=== PATIENT | male | born 1950 | race Caucasian/White ===

== ENCOUNTER → 2018-09-09 | Day surgery (SDC) | payer MEDICARE ==
[2018-09-08 11:04] LABS: BASOPHILS % 0.7 % (0.0-1.0); EOSINOPHILS # (AUTO) 0.4 (0.0-0.4); EOSINOPHILS % 6.8 % (0.0-6.0); HEMATOCRIT 40.4 % (38.2-49.6); HEMOGLOBIN 14.1 g/dL (14.0-18.0); LYMPHOCYTES % 17.6 % (18.0-39.1); MEAN CORPUSCULAR HEMOGLOBIN 32.6 pg (28-32); MEAN CORPUSCULAR HGB CONC 34.9 g/dL (31-35); MEAN CORPUSCULAR VOLUME 93.5 fL (81-99); MONOCYTES # (AUTO) 0.5 (0.2-0.8); MONOCYTES % 9.4 % (4.4-11.3); NEUTROPHILS # (AUTO) 3.6 (2.1-6.9); NEUTROPHILS % 65.3 % (38.7-80.0); PLATELET COUNT 177 x10e3/uL (140-360); RED BLOOD COUNT 4.32 x10e6/uL (4.3-5.7); RED CELL DISTRIBUTION WIDTH 12.3 % (11.7-14.4)
[~2018-09-09] MED LIST: FENTANYL CITRATE/PF 100MCG/2 ML INJ ONE; LIDOCAINE HCL 2% LOCAL INJ 5 ML SDV VIAL INJ ONE; MIDAZOLAM HCL 2 MG/2 ML VIAL ONE; PROPOFOL IV EMULSION 10 MG/ML 50 ML VIAL ONE
--- OUTSIDE RECORDS SUMMARY | 2018-09-09 05:07 | XMS REPORT | Clinical Summary ---
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 Radiology Fermin Lin MD Tongue cancer Encounter 07/06/2018 [facility] Radiology Fermin Lin MD Tongue cancer Encounter 07/06/2018 Office Visit Oncology Fermin Lin MD Tongue cancer (Primary Dx); Tongue carcinoma 07/06/2018 Lab Lab Fermin Lin MD Tongue cancer 07/06/2018 Ancillary Oncology Fermin Lin MD Tongue cancer Orders 05/24/2018 Orders Only Oncology Krista Currie MA 05/11/2018 Telephone Oncology Fermin Lin MD 12/21/2017 Orders Only Oncology Krista Currie MA Tongue cancer (Primary Dx) 12/10/2017 [facility] Radiology Fermin Lin MD Carcinoma of tongue Encounter 12/10/2017 [facility] Radiology Fermin Lin MD Carcinoma of tongue Encounter 12/10/2017 Office Visit Oncology Fermin Lin MD Carcinoma of tongue (Primary Dx) 12/10/2017 Lab Lab Fermin Lin MD Carcinoma of tongue 12/10/2017 Ancillary Oncology Fermin Lin MD Carcinoma of tongue Orders after 09/08/2017 Social History Tobacco Use Types Packs/Day Years Used Date Unknown If Ever Smoked Sex Assigned at Date Recorded Not on file Last Filed Vital Signs Vital Sign Reading Time Taken Blood Pressure 134/89 07/06/2018 2:59 PM CDT Pulse 57 07/06/2018 2:59 PM CDT Temperature 35.9 C (96.6 F) 12/10/2017 11:10 AM [facility] Respiratory Rate - - Oxygen Saturation - - Inhaled Oxygen - - Concentration Weight 84.4 kg (186 lb) 07/06/2018 2:59 PM CDT Height 177.8 cm (5' 10") 07/06/2018 2:59 PM CDT Body Mass Index 26.69 07/06/2018 2:59 PM CDT Plan of Treatment Date Type Specialty Care Team Description 07/07/2019 Appointment Radiology Fermin Lin MD [address] [address] 07/07/2019 Office Visit Oncology Fermin Lin MD [address] [place] [id number] Health Maintenance Due Date Last Done Comments COLON CANCER SCREENING 2001 SHINGRIX VACCINE (#1) 2001 ZOSTER VACCINE 2011 PNEUMOCOCCAL 2016 POLYSACCHARIDE VACCINE AGE 65 AND OVER PNEUMOCOCCAL-13 2016 INFLUENZA VACCINE 06/23/2018 Procedures Procedure Name Priority Date/Time Associated Diagnosis Comments CT SOFT TISSUE NECK W Routine 07/06/2018 Tongue cancer Results for this CONTRAST 12:30 PM CDT procedure are in the results section. CT CHEST W CONTRAST Routine 07/06/2018 Tongue cancer Results for this ABDOMEN W WO CONTRAST 12:29 PM CDT procedure are in the PELVIS W CONTRAST results section. ESTIMATED GFR Routine 07/06/2018 Results for this 11:31 AM CDT procedure are in the results section. POC CREATININE Routine 07/06/2018 Results for this 11:31 AM CDT procedure are in the results section. ZZESTIMATED GFR Routine 07/06/2018 Results for this 10:54 AM CDT procedure are in the results section. HC COMPLETE BLD COUNT Routine 07/06/2018 Tongue cancer Results for this W/AUTO DIFF 10:54 AM CDT procedure are in the results section. URIC ACID LEVEL Routine 07/06/2018 Tongue cancer Results for this 10:54 AM CDT procedure are in the results section. PHOSPHORUS LEVEL Routine 07/06/2018 Tongue cancer Results for this 10:54 AM CDT procedure are in the results section. LDH Routine 07/06/2018 Tongue cancer Results for this 10:54 AM CDT procedure are in the results section. CARCINOEMBRYONIC ANTIGEN Routine 07/06/2018 Tongue cancer Results for this (CEA) 10:54 AM CDT procedure are in the results section. COMPREHENSIVE METABOLIC Routine 07/06/2018 Tongue cancer Results for this PANEL 10:54 AM CDT procedure are in the results section. GGT Routine 07/06/2018 Tongue cancer Results for this 10:54 AM CDT procedure are in the results section. CT CHEST W CONTRAST Routine 12/10/2017 Carcinoma of tongue Results for this ABDOMEN W WO CONTRAST 10:34 AM [facility] CONS[facility] procedure are in the PELVIS W CONTRAST results section. CT SOFT TISSUE NECK W Routine 12/10/2017 Carcinoma of tongue Results for this CONTRAST 10:33 AM [facility] procedure are in the results section. ZZESTIMATED GFR Routine 12/10/2017 Results for this 9:33 AM [facility] procedure are in the results section. CREATININE LEVEL Routine 12/10/2017 Results for this 9:33 AM [facility]ENTER CON[facility] procedure are in the results section. ZZESTIMATED GFR Routine 12/10/2017 Results for this 9:07 AM [facility] CON[facility] procedure are in the results section. CARCINOEMBRYONIC ANTIGEN Routine 12/10/2017 Carcinoma of tongue Results for this (CEA) 9:07 AM [facility] procedure are in the results section. CBC HEMOGRAM Routine 12/10/2017 Carcinoma of tongue Results for this 9:07 AM [facility] CON[facility] procedure are in the results section. PHOSPHORUS LEVEL Routine 12/10/2017 Carcinoma of tongue Results for this 9:07 AM [facility]ENTER CONS[facility] procedure are in the results section. LDH Routine 12/10/2017 Carcinoma of tongue Results for this 9:07 AM [facility] CENTER CONS[facility] procedure are in the results section. GGT Routine 12/10/2017 Carcinoma of tongue Results for this 9:07 AM [facility]ENTER CON[facility] procedure are in the results section. URIC ACID LEVEL Routine 12/10/2017 Carcinoma of tongue Results for this 9:07 AM [facility] CON[facility] procedure are in the results section. COMPREHENSIVE METABOLIC Routine 12/10/2017 Carcinoma of tongue Results for this PANEL 9:07 AM [facility]ENTER CON[facility] procedure are in the results section. after 09/08/2017 Results * CT Soft Tissue Neck W Contrast (07/06/2018 12:30 PM) Only the most recent of 2 results within the time period is included. Narrative Performed At EXAMINATION: CT SOFT TISSUE NECK W CONTRAST [facility] CLINICAL HISTORY: C02.9 Malignant neoplasm of tongueunspecified, tongue ca COMPARISON:CT neck 12/10/2017. TECHNIQUE: Postcontrast enhanced imaging through the neck was performed from the upper chest through the skull base with coronal and sagittal reconstructed images.CT imaging was performed with iterative reconstruction technique and/or automated exposure control to reduce radiation dose. FINDINGS: There is similar appearing hypoattenuating submucosal edema involving the left oral pharynx and glossotonsillar sulcus, images 97-115 of series 8, likely reflecting posttreatment change. No suspicious masslike enhancement identified to suggest recurrent tumor. No pathologically enlarged cervical, supraclavicular or upper mediastinal lymph nodes identified. The base of tongue appears unremarkable. The laryngeal structures are symmetric and unremarkable. No prevertebral soft tissue swelling identified. There is marked atrophy of the submandibular glands, likely posttreatment related. The parotid glands appear normal bilaterally. The thyroid gland is grossly unremarkable. Normal three-vessel branching of the aortic arch is noted. The carotid and vertebral arteries are patent without gross luminal irregularity. No significant periodontal disease identified. There are healed postoperative changes compatible prior bilateral uncinectomies, maxillary antrostomies and posterior ethmoidectomies. Focal inflammatory mucosal thickening is noted throughout the right frontal sinus and anterior ethmoid air cells. The remaining paranasal sinuses and mastoid air cells are clear. The orbital structures are symmetric and grossly unremarkable. Limited evaluation of the intracranial structures reveals no suspicious abnormality. No midline shift or ventriculomegaly identified. No suspicious osseous lesions are identified. No significant stenosis is seen throughout the cervical spine. The lung apices are clear. IMPRESSION: Stable appearing posttreatment changes most pronounced along the left oropharynx when compared to prior CTs dating back to 06/15/2014. No evidence of recurrent tumor or cervical lymphadenopathy. [id number] Procedure Note Hm Interface, Radiology Results - 07/06/2018 1:12 PM CDT EXAMINATION: CT SOFT TISSUE NECK W CONTRAST CLINICAL HISTORY: C02.9 Malignant neoplasm of tongue unspecified, tongue ca COMPARISON: CT neck 12/10/2017. TECHNIQUE: Postcontrast enhanced imaging through the neck was performed from the upper chest through the skull base with coronal and sagittal reconstructed images. CT imaging was performed with iterative reconstruction technique and/or automated exposure control to reduce radiation dose. FINDINGS: There is similar appearing hypoattenuating submucosal edema involving the left oral pharynx and glossotonsillar sulcus, images 97-115 of series 8, likely reflecting posttreatment change. No suspicious masslike enhancement identified to suggest recurrent tumor. No pathologically enlarged cervical, supraclavicular or upper mediastinal lymph nodes identified. The base of tongue appears unremarkable. The laryngeal structures are symmetric and unremarkable. No prevertebral soft tissue swelling identified. There is marked atrophy of the submandibular glands, likely posttreatment related. The parotid glands appear normal bilaterally. The thyroid gland is grossly unremarkable. Normal three-vessel branching of the aortic arch is noted. The carotid and vertebral arteries are patent without gross luminal irregularity. No significant periodontal disease identified. There are healed postoperative changes compatible prior bilateral uncinectomies, maxillary antrostomies and posterior ethmoidectomies. Focal inflammatory mucosal thickening is noted throughout the right frontal sinus and anterior ethmoid air cells. The remaining paranasal sinuses and mastoid air cells are clear. The orbital structures are symmetric and grossly unremarkable. Limited evaluation of the intracranial structures reveals no suspicious abnormality. No midline shift or ventriculomegaly identified. No suspicious osseous lesions are identified. No significant stenosis is seen throughout the cervical spine. The lung apices are clear. IMPRESSION: Stable appearing posttreatment changes most pronounced along the left oropharynx when compared to prior CTs dating back to 06/15/2014. No evidence of recurrent tumor or cervical lymphadenopathy. [id number] Performing Organization Address City/State/Zipcode Phone Number [facility] [address] [place] [address] * CT Chest W Contrast Abdomen W Wo Contrast Pelvis W Contrast (07/06/2018 12:29 PM) Only the most recent of 2 results within the time period is included. Narrative Performed At EXAMINATION:CT CHEST W CONTRAST ABDOMEN W WO CONTRAST PELVIS W CONTRAST [facility] CLINICAL HISTORY:C02.9 Malignant neoplasm of tongueunspecified, debbi livingston TECHNIQUE:Axial images of the abdomen were obtained prior to intravenous contrast administration. Multiple axial images of the chest, abdomen, and pelvis were obtained following intravenous administration of iodinated contrast. Sagittal and coronal computerized reformatted images were obtained. CT scans are performed using radiation dose reduction techniques. Technical factors are evaluated and adjusted to ensure appropriate moderation of exposure. Automated dose management technology is applied to adjust radiation exposure while achieving a diagnostic quality image. COMPARISON:12/10/2017 IMPRESSION: Chest: 1.There is no mediastinal adenopathy. Trace pericardial effusion. Heart is normal in size. 2.No suspicious pulmonary nodules. Abdomen: 1.Scattered subcentimeter hepatic cysts and subcentimeter left hepatic lobe hemangioma are reidentified. No evidence of metastatic disease in the abdomen. 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 Largest measures approximately 1.7 cm in the uncinate process. 3.Spleen is normal in size. There is no adrenal mass. Stable subcentimeter renal cysts. 4.There is no regional adenopathy. The abdominal aorta is normal in caliber. Pelvis: 1.The urinary bladder is unremarkable. 2.The prostate is normal in size. 3.There is no pelvic mass or lymphadenopathy. 4.No suspicious osseous lesions are seen. [facility]-[id number] Procedure Note [facility], Radiology Results Incoming - 07/06/2018 4:16 PM CDT EXAMINATION: CT CHEST W CONTRAST ABDOMEN W WO CONTRAST PELVIS W CONTRAST CLINICAL HISTORY: C02.9 Malignant neoplasm of tongue unspecified, debbi ca TECHNIQUE: Axial images of the abdomen were obtained prior to intravenous contrast administration. Multiple axial images of the chest, abdomen, and pelvis were obtained following intravenous administration of iodinated contrast. Sagittal and coronal computerized reformatted images were obtained. CT scans are performed using radiation dose reduction techniques. Technical factors are evaluated and adjusted to ensure appropriate moderation of exposure. Automated dose management technology is applied to adjust radiation exposure while achieving a diagnostic quality image. COMPARISON: 12/10/2017 IMPRESSION: Chest: 1. There is no mediastinal adenopathy. Trace pericardial effusion. Heart is normal in size. 2. No suspicious pulmonary nodules. Abdomen: 1. Scattered subcentimeter hepatic cysts and subcentimeter left hepatic lobe hemangioma are reidentified. No evidence of metastatic disease in the abdomen. 2. Multiple stable pancreatic cysts, likely IPMN. Largest measures approximately 1.7 cm in the uncinate process. 3. Spleen is normal in size. There is no adrenal mass. Stable subcentimeter renal cysts. 4. There is no regional adenopathy. The abdominal aorta is normal in caliber. Pelvis: 1. The urinary bladder is unremarkable. 2. The prostate is normal in size. 3. There is no pelvic mass or lymphadenopathy. 4. No suspicious osseous lesions are seen. [facility]-[id number] Performing Organization Address City/[facility]/[place] [address] * Estimated GFR (07/06/2018 11:31 AM) GFR Non Af Amer 75 mL/min/1.73 m2 [facility] DEPARTMENT OF PATHOLOGY AND GENOMIC MEDICINE GFR Af Amer >90 mL/min/1.73 m2 [facility] DEPARTMENT OF Comment: PATHOLOGY AND Chronic kidney disease: <60 GENOMIC MEDICINE mL/min/1.73m2 Kidney failure: <15 mL/min/1.73m2 The estimated GFR is calculated from the IDMS-traceable Modification of Diet in Renal Disease Equation. The accuracy of the calculation is poor when the creatinine is normal. Calculated values >90 mL/min/1.73m2 are not reported. This equation has not been validated in children (<18 years), women, the elderly (>70 years), or ethnic groups other than Caucasians and Americans. Specimen Blood Performing Organization Address [facility] [place] [address] PATHOLOGY AND GENOMIC MEDICINE * POC creatinine (07/06/2018 11:31 AM) POC creatinine 1.0 0.7 - 1.2 mg/dl [facility] DEPARTMENT OF Comment: PATHOLOGY AND Meter ID: [id number] GENOMIC MEDICINE Instructional Technology Facilitator: Abhishek Ortiz Specimen Blood Performing Organization Address [facility]/[place] [address] PATHOLOGY AND GENOMIC MEDICINE * Estimated GFR (07/06/2018 10:54 AM) Only the most recent of 3 results within the time period is included. GFR Non Af Amer 60 mL/min/1.73 m2 [facility] DEPARTMENT OF PATHOLOGY AND GENOMIC MEDICINE GFR Af Amer 73 mL/min/1.73 m2 [facility] DEPARTMENT OF Comment: PATHOLOGY AND Chronic kidney disease: <60 GENOMIC MEDICINE mL/min/1.73m2 Kidney failure: <15 mL/min/1.73m2 The estimated GFR is calculated from the IDMS-traceable Modification of Diet in Renal Disease Equation. The accuracy of the calculation is poor when the creatinine is normal. Calculated values >90 mL/min/1.73m2 are not reported. This equation has not been validated in children (<18 years), women, the elderly (>70 years), or ethnic groups other than Caucasians and Americans. Specimen Plasma specimen Performing Organization Address City/[facility]/Zipcode Phone Number [address] [address] PATHOLOGY AND GENOMIC MEDICINE * CBC with platelet and differential (07/06/2018 10:54 AM) WBC 5.04 4.50 - 11.00 k/uL [facility] DEPARTMENT OF PATHOLOGY AND GENOMIC MEDICINE RBC 4.23 (L) 4.40 - 6.00 m/uL [facility] DEPARTMENT OF PATHOLOGY AND GENOMIC MEDICINE HGB 13.7 (L) 14.0 - 18.0 g/dL [facility] DEPARTMENT OF PATHOLOGY AND GENOMIC MEDICINE HCT 39.5 (L) 41.0 - 51.0 % [facility] DEPARTMENT OF PATHOLOGY AND GENOMIC MEDICINE MCV 93.4 82.0 - 100.0 fL [facility] DEPARTMENT OF PATHOLOGY AND GENOMIC MEDICINE MCH 32.4 27.0 - 34.0 pg [facility] DEPARTMENT OF PATHOLOGY AND GENOMIC MEDICINE MCHC 34.7 31.0 - 37.0 g/dL [facility] DEPARTMENT OF PATHOLOGY AND GENOMIC MEDICINE RDW - SD 42.1 37.0 - 55.0 fL [facility] DEPARTMENT OF PATHOLOGY AND GENOMIC MEDICINE MPV 9.4 8.8 - 13.2 fL [facility] DEPARTMENT OF PATHOLOGY AND GENOMIC MEDICINE Platelet count 195 150 - 400 k/uL [facility] DEPARTMENT OF PATHOLOGY AND GENOMIC MEDICINE Nucleated RBC 0.00 /100 WBC [facility] DEPARTMENT OF PATHOLOGY AND GENOMIC MEDICINE Neutrophils 61.8 39.0 - 69.0 % [facility] DEPARTMENT OF PATHOLOGY AND GENOMIC MEDICINE Lymphocytes 20.6 (L) 25.0 - 45.0 % [facility] DEPARTMENT OF PATHOLOGY AND GENOMIC MEDICINE Monocytes 8.9 0.0 - 10.0 % [facility] DEPARTMENT OF PATHOLOGY AND GENOMIC MEDICINE Eosinophils 7.9 (H) 0.0 - 5.0 % [facility] DEPARTMENT OF PATHOLOGY AND GENOMIC MEDICINE Basophils 0.6 0.0 - 1.0 % [facility] DEPARTMENT OF PATHOLOGY AND GENOMIC MEDICINE Immature granulocytes 0.2Comment: "Immature 0.0 - 1.0 % [facility] DEPARTMENT OF granulocytes" (promyelocytes, PATHOLOGY AND myelocytes, metamyelocytes) GENOMIC MEDICINE Specimen Blood Performing Organization Address City/State/Zipcode Phone Number [address] [facility] PATHOLOGY AND GENOMIC MEDICINE * Uric acid level (07/06/2018 10:54 AM) Only the most recent of 2 results within the time period is included. Uric acid 4.5 3.4 - 7.0 mg/dL [facility] DEPARTMENT OF PATHOLOGY AND GENOMIC MEDICINE Specimen Plasma specimen Performing Organization Address City/[facility] [place] [address] PATHOLOGY AND [facility] * Phosphorus level (07/06/2018 10:54 AM) Only the most recent of 2 results within the time period is included. Phosphorus 2.3 (L) 2.4 - 4.5 mg/dL [facility] DEPARTMENT OF PATHOLOGY AND GENOMIC MEDICINE Specimen Plasma specimen Performing Organization Address [facility] [place] [address] PATHOLOGY AND [facility] * LDH (07/06/2018 10:54 AM) Only the most recent of 2 results within the time period is included. LDH 192 87 - 225 U/L [facility] DEPARTMENT OF PATHOLOGY AND GENOMIC MEDICINE Specimen Plasma specimen Performing Organization Address [facility] Phone Number [facility] [place] [address] PATHOLOGY AND [facility] * GGT (07/06/2018 10:54 AM) Only the most recent of 2 results within the time period is included. GGT 11 0 - 59 U/L [facility] DEPARTMENT OF PATHOLOGY AND [employer] MEDICINE Specimen Plasma specimen Performing Organization Address [facility] [place] [address] PATHOLOGY AND [facility] * Carcinoembryonic antigen (CEA) (07/06/2018 10:54 AM) Only the most recent of 2 results within the time period is included. CEA 3.4 0.0 - 3.8 ng/mL [facility] DEPARTMENT OF Comment: PATHOLOGY AND Reference range for heavy GENOMIC MEDICINE smokers:0.0 - 5.5 ng/mL The OSM[employer] Severino 8000 CEA immunoassay was used. Results obtained with different assay methods or kits should not be used interchangeably and may be different. Specimen Serum Performing Organization Address [facility] [place] [address] PATHOLOGY AND GENOMIC MEDICINE * Comprehensive metabolic panel (07/06/2018 10:54 AM) Only the most recent of 2 results within the time period is included. Sodium 139 135 - 148 mEq/L [facility] DEPARTMENT OF PATHOLOGY AND GENOMIC MEDICINE Potassium 4.5 3.5 - 5.0 mEq/L [facility] DEPARTMENT OF PATHOLOGY AND GENOMIC MEDICINE Chloride 103 98 - 112 mEq/L [facility] DEPARTMENT OF PATHOLOGY AND GENOMIC MEDICINE CO2 24 24 - 31 mEq/L [facility] DEPARTMENT OF PATHOLOGY AND GENOMIC MEDICINE Anion gap 12@ANIO 7 - 15 mEq/L [facility] DEPARTMENT OF PATHOLOGY AND GENOMIC MEDICINE BUN 19 8 - 23 mg/dL [facility] DEPARTMENT OF PATHOLOGY AND GENOMIC MEDICINE Creatinine 1.2 0.7 - 1.2 mg/dL [facility] DEPARTMENT OF PATHOLOGY AND GENOMIC MEDICINE Glucose 73 65 - 99 mg/dL [facility] DEPARTMENT OF PATHOLOGY AND GENOMIC MEDICINE Calcium 9.5 8.8 - 10.2 mg/dL [facility] DEPARTMENT OF PATHOLOGY AND GENOMIC MEDICINE Protein 7.5 6.3 - 8.3 g/dL [facility] DEPARTMENT OF Comment: PATHOLOGY AND GENOMIC MEDICINE 4.6-7.0 g/dL 1 week 4.4-7.6 g/dL 7 months-1year 5.1-7.3 g/dL 1-2 years5.6-7 .5 g/dL >3 years6.0-8 .0 g/dL 18-150 6.3-8.3 g/dL Albumin 3.8 3.5 - 5.0 g/dL [facility] DEPARTMENT OF PATHOLOGY AND GENOMIC MEDICINE A/G ratio 1.0 0.7 - 3.8 [facility] DEPARTMENT OF PATHOLOGY AND GENOMIC MEDICINE Alkaline phosphatase 59 40 - 129 U/L [facility] DEPARTMENT OF PATHOLOGY AND GENOMIC MEDICINE AST 20 10 - 50 U/L [facility] DEPARTMENT OF PATHOLOGY AND GENOMIC MEDICINE ALT 10 5 - 50 U/L [facility] DEPARTMENT OF PATHOLOGY AND GENOMIC MEDICINE Total bilirubin 0.3 0.0 - 1.2 mg/dL [facility] DEPARTMENT OF PATHOLOGY AND GENOMIC MEDICINE Specimen Plasma specimen Performing Organization Address City/State/Zipcode Phone Number [facility] DEPARTMENT OF [address] [place] [address] PATHOLOGY AND GENOMIC MEDICINE * Creatinine level (12/10/2017 9:33 AM) Creatinine 1.2Comment: Testing performed 0.7 - 1.2 mg/dL [facility] DEPARTMENT OF on the ISTAT instrument by [employer] [id number] GENOMIC MEDICINE Specimen Plasma specimen Performing Organization Address City/[facility]/Zipcode Phone Number [facility] DEPARTMENT OF [address] [place] [address] PATHOLOGY AND GENOMIC MEDICINE * CBC hemogram (12/10/2017 9:07 AM) WBC 4.82 4.50 - 11.00 k/uL [facility] DEPARTMENT OF PATHOLOGY AND GENOMIC MEDICINE RBC 4.13 (L) 4.40 - 6.00 m/uL [facility] DEPARTMENT OF PATHOLOGY AND GENOMIC MEDICINE HGB 13.2 (L) 14.0 - 18.0 g/dL [facility] DEPARTMENT OF PATHOLOGY AND GENOMIC MEDICINE HCT 38.8 (L) 41.0 - 51.0 % [facility] DEPARTMENT OF PATHOLOGY AND GENOMIC MEDICINE MCV 93.9 82.0 - 100.0 fL [facility] DEPARTMENT OF PATHOLOGY AND GENOMIC MEDICINE MCH 32.0 27.0 - 34.0 pg [facility] DEPARTMENT OF PATHOLOGY AND GENOMIC MEDICINE MCHC 34.0 31.0 - 37.0 g/dL [facility] DEPARTMENT OF PATHOLOGY AND GENOMIC MEDICINE RDW - SD 44.8 37.0 - 55.0 fL [facility] DEPARTMENT OF PATHOLOGY AND GENOMIC MEDICINE MPV 9.7 8.8 - 13.2 fL [facility] DEPARTMENT OF PATHOLOGY AND GENOMIC MEDICINE Platelet count 172 150 - 400 k/uL [facility] DEPARTMENT OF PATHOLOGY AND GENOMIC MEDICINE Nucleated RBC 0.00 /100 WBC [facility] [facility] DEPART[facility]OMIC MEDICINE Specimen Blood Performing Organization Address City/[facility]/Zipcode Phone Number [facility] DEPARTMENT OF [address] [place] [address] PATHOLOGY AND GENOMIC MEDICINE after 09/08/2017 Insurance Payer Benefit Subscriber ID Type Phone Address Plan / Group MEDICARE MEDICARE xxxxxxxxxx Medicare [place], [place] PART A AND B AARP AARP xxxxxxxxxxx [place] [address]
[2018-09-09 07:55] VITALS: BP 128/91
== END | disposition home or self-care (01) ==
LOC: OR 05:00
PROVIDERS: ATTEND Internal Medicine Gastroenterology
DX: Z12.11 Encounter for screening for malignant neoplasm of colon (principal); K57.30 Diverticulosis of large intestine without perforation or abscess without bleeding; K64.8 Other hemorrhoids; Z71.3 Dietary counseling and surveillance; E66.3 Overweight; G47.33 Obstructive sleep apnea (adult) (pediatric); I44.0 Atrioventricular block, first degree; I49.1 Atrial premature depolarization; Z01.810 Encounter for preprocedural cardiovascular examination; Z01.812 Encounter for preprocedural laboratory examination; Z68.27 Body mass index [BMI] 27.0-27.9, adult; Z85.819 Personal history of malignant neoplasm of unspecified site of lip, oral cavity, and pharynx
CPT/HCPCS: 36415; 85025; 93005; G0121; J2001; J2250; 45378